=== PATIENT | female | born 1990 | race Caucasian/White ===

== ENCOUNTER 2022-03-24 18:45 | Emergency (ER) | payer OTHER ==
[~2022-03-24] VITALS: Ht 165.1 cm; Wt 71.8 kg
[2022-03-24 19:04] VITALS: TEMP 98.6
--- NOTE | 2022-03-24 20:05 | NUR ---
FHR tracing from [id number]. Category 1 FHR tracing. Baseline 130 bpm with accelerations and no decelerations. No contractions on toco and patient denies feeling contractions.
[2022-03-24 21:23] VITALS: BP 123/79; PULSE 83
== END 2022-03-24 21:23 | disposition home or self-care (01) ==
LOC: COL.ER 18:45
DX: O99.891 Other specified diseases and conditions complicating pregnancy (principal); M79.662 Pain in left lower leg; Z79.82 Long term (current) use of aspirin; Z86.16 Personal history of COVID-19; Z3A.28 28 weeks gestation of pregnancy
CPT/HCPCS: J1650

== ENCOUNTER → 2022-03-25 | Outpatient (CLI) | payer OTHER | LOC: COL.VAS 07:46 | DX: M79.662 Pain in left lower leg (principal); M79.89 Other specified soft tissue disorders; Z86.16 Personal history of COVID-19; Z33.1 Pregnant state, incidental ==

== ENCOUNTER 2022-09-05 11:33 | Emergency (ER) | payer OTHER ==
[~2022-09-05] VITALS: Ht 165.1 cm; Wt 68.2 kg
[~2022-09-05 11:33] MED LIST: COLACE 100100 MG/CAP PO; MOTRIN 800800 MG/TAB PO; PRENATAL TABLET PO; PROFERRIN ES12 MG PO
[2022-09-05 12:16] LABS: COLLECTION METHOD CLEAN CATCH
[2022-09-05 12:26] LABS: MUCOUS Present (NOT PRESENT); PH 5.5 (5.0-8.5); SQUAMOUS EPITHELIAL 0-2 /hpf (0-10); URINE APPEARANCE Clear (CLEAR/HAZY); URINE BACTERIA None Seen /hpf (NONE SEEN); URINE COLOR Yellow (YELLOW); URINE RBC 0-2 /hpf (0-2)
[2022-09-05 12:26] LABS: BASO # 0.1 K/mm3 (0.0-0.2); BASO % 0.6 % (0.0-2.0); EOS # 0.9 K/mm3 (0.0-0.7); EOS % 7.7 % (0.0-4.0); GRAN # 8.3 K/mm3 (1.4-6.5); GRAN % 69.5 % (42.2-75.2); HEMATOCRIT 43.5 % (37.0-47.0); HEMOGLOBIN 15.3 g/dl (12.5-16.0); LYMPH % 16.5 % (20.0-51.0); MEAN CELL VOLUME 89 fl (80.0-100.0); MEAN CORPUSCULAR HEMOGLOBIN 31 pg (27-31); MEAN CORPUSCULAR HGB CONC 35 g/dl (33.0-37.0); MEAN PLATELET VOLUME 10.4 fl (7.4-10.4); MONO # 0.6 K/mm3 (0.1-0.6); MONO % 5.4 % (1.7-9.3); PLATELET COUNT 260 K/mm3 (130-400); RED BLOOD COUNT 4.89 M/mm3 (4.10-5.30); REDCELL DISTRIBUTION WIDTH-CV 11.9 % (11.5-14.5)
[2022-09-05 12:27] LABS: URINE BLOOD Negative (NEGATIVE); URINE GLUCOSE Negative (NEGATIVE); URINE KETONE Negative (NEGATIVE); URINE NITRATE Negative (NEGATIVE); URINE PROTEIN(semi-quant) Negative (NEGATIVE); URINE UROBILINOGEN 0.2 E.U/dL (0.2-1.0)
[2022-09-05 12:31] LABS: BILIRUBIN,TOTAL 0.4 mg/dL (0.2-1.2); CALCIUM 9.9 mg/dL (8.4-10.2); CREATININE, serum 0.77 mg/dL (0.57-1.11); POTASSIUM 3.6 mmol/L (3.5-4.5); TOTAL PROTEIN 7.5 gm/dL (6.2-8.1)
[2022-09-05] MEDS ORDERED: PROTONIX 40MG T40 MG PO (13:34)
[2022-09-05 13:54] VITALS: BP 110/83; PULSE 67; TEMP 98.4
== END 2022-09-05 13:54 | disposition home or self-care (01) ==
LOC: COL.ER 11:33
PROVIDERS: Physician Assistant
DX: R10.13 Epigastric pain (principal); D72.829 Elevated white blood cell count, unspecified